=== PATIENT | female | born 2000 | race Two or more races ===

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

== ENCOUNTER 2021-09-08 11:40 | Emergency (ER) | payer MEDICAID ==
[~2021-09-08] VITALS: Ht 152.4 cm; Wt 60.6 kg
[2021-09-08 15:08] VITALS: BP 123/80
[2021-09-08] MEDS ORDERED: ONDA-144 PO (15:31)
[2021-09-08] MEDS ORDERED: AMOX-277 PO (15:31)
[2021-09-08] MEDS ORDERED: ACET-1158 PO (15:31)
== END 2021-09-08 16:21 | disposition home or self-care (01) ==
LOC: ER 11:40
DX: U07.1 COVID-19 (principal); J02.9 Acute pharyngitis, unspecified
CPT/HCPCS: 36415; 87426

== ENCOUNTER 2023-04-06 06:45 | Emergency (ER) | payer MEDICAID ==
[~2023-04-06] VITALS: Ht 154.9 cm; Wt 61.0 kg
[~2023-04-06 06:45] MED LIST: ACET500T58 PO; AMOX875T4 PO; ONDA-144 PO
[2023-04-06] MEDS ORDERED: IBUPROFEN 800 MG TAB PO ONE (07:00)
[2023-04-06] MEDS ORDERED: SOD CHL 0.45% 500 ML IV ONE (08:15)
[2023-04-06] MEDS ORDERED: ACETAMINOPHEN 500 MG TAB PO ONE ×2 (08:15→09:00)
[2023-04-06 09:48] LABS: Rapid Influenza A Negative (Negative); Rapid Influenza B Negative (Negative)
[2023-04-06 09:55] VITALS: BP 109/61; PULSE 91; RESP 16; TEMP 98.1; O2SAT 97
[2023-04-06] MEDS ORDERED: DexAMETHasone SOD PHOS 10MG/1ML VIAL INJ IM ONE (10:15)
== END 2023-04-06 11:15 | disposition home or self-care (01) ==
LOC: ER 06:45
DX: J06.9 Acute upper respiratory infection, unspecified (principal); Z79.2 Long term (current) use of antibiotics; Z79.899 Other long term (current) drug therapy
CPT/HCPCS: 87804; 93005; 96360; 96372; 99285; J1100